=== PATIENT | male | born 1975 | race Caucasian/White ===

== ENCOUNTER 2017-04-26 14:12 | Emergency (ER) | payer MEDICAID ==
[~2017-04-26] VITALS: Ht 172.7 cm; Wt 115.0 kg
[2017-04-26 14:14] VITALS: Ht 172.7 cm; Wt 115.0 kg
--- NOTE | 2017-04-26 15:44 | ERD ---
ER Documentation Chief Complaint Date/Time DATE: 04/26/17 TIME: 15:43 Chief Complaint lac on left hand x 1 hour, cut at work HPI 41-year-old male presents emergency department today complaining of a left hand laceration he sustained earlier at work today while cutting with metal. Denies any previous trauma, fevers or chills. Has not taken any medication for the pain. States he is not up-to-date on his tetanus peer ROS All systems reviewed and are negative except as per history of present illness. Medications Home Meds Active Scripts Cephalexin* (Keflex*) 500 Mg Capsule, 500 MG PO QID for 7 Days, CAP Prov:AMBER RAPP PA-C 04/26/17 Acetaminophen* (Tylophen*) 500 Mg Capsule, 1 CAP PO Q6H Y for PAIN AND OR ELEVATED TEMP, #30 CAP Prov:AMBER RAPP PA-C 04/26/17 Naproxen* (Naprosyn*) 500 Mg Tablet, 500 MG PO BID Y for PAIN AND/OR INFLAMMATION, #30 TAB Prov:AMBER RAPP PA-C 04/26/17 Allergies Allergies: Coded Allergies: No Known Allergy (Unverified , 04/26/17) Physical Exam Vitals Vital Signs Date Time Temp Pulse Resp B/P Pulse Ox O2 Delivery O2 Flow Rate FiO2 04/26/17 14:14 97.8 71 20 126/82 98 Physical Exam Const: No acute distress Head: Atraumatic Eyes: Normal Conjunctiva ENT: Normal External Ears, Nose and Mouth. Neck: Full range of motion..~ No meningismus. Resp: Clear to auscultation bilaterally Cardio: Regular rate and rhythm, no murmurs Skin: No petechiae or rashes Back: No midline or flank tenderness Ext: Left hand with Neur: Awake and alert Psych: Normal Mood and Affect Results 24 hrs Current Medications Medications (Trade) Dose Ordered Sig/Eryn Route PRN Reason Start Time Stop Time Status Last Admin Dose Admin Acetaminophen/ Hydrocodone Bitart (Burden (5/325)) 1 tab ONCE ONCE PO 04/26/17 16:00 04/26/17 16:01 DC 04/26/17 15:52 Diphtheria/ Tetanus/Acell Pertussis (Adacel) 0.5 ml ONCE ONCE IM* 8/8/17 16:00 04/26/17 16:01 DC 04/26/17 15:53 Lidocaine (Xylocaine 2% (Mdv) 20 ml) 20 ml ONCE ONCE INJ 04/26/17 16:00 04/26/17 16:01 DC Procedures/MDM This a 41-year-old male who presents the emergency department for laceration that he sustained while at work today when cutting with metal. On physical exam patient had evidence of a 2 cm laceration on the dorsal aspect of his left thumb. [place] that the wound is best closed with sutures. I explained the risks and benefits of the procedure and the patient tolerated the procedure well. There were no complications. Patient had no tenderness along his joints or bone. There is no evidence of tendon involvement. There is no evidence of foreign body and I do not feel the patient requires imaging at this time. Low suspicion for acute fracture, dislocation. Laceration was repaired by both myself and FERNANDO Ghotra Laceration Repair by me: Anesthesia: 1% lidocaine locally 3 cc Location: Left thumb Tendon/Joint/Nerves: No injury Foreign body: None detected after copious irrigation and exploration Technique: 5 Simple Interrupted Sutures Complexity: No subcutaneous sutures/mucosal repair/ edge excision Post Closure Length: 2 cm Patient's bleeding was easily controlled in the department and there is no indication of anemia. No evidence of compartment syndrome, neurologic injury, vascular injury, open joint, tendon laceration, or foreign body. Patient is appropriate for outpatient follow up. 48 hour wound check. Scar minimization instructions given. Patient was given an updated tetanus, Burden here in the emergency department. He will be given a prescription for short course of Naprosyn, tylenol for home. I was also given a prescription for Keflex . Patient was placed in a splint given the location of the sutures. He was distal neurovascular intact pre-and post splint application instructed to return in 48 hours for a wound check and 7-10 days for suture removal At this time the patient is stable for discharge and outpatient management. Patient should follow up with their PCP in the next 1-2 days. They may return to the emergency department sooner for any persistent or worsening of symptoms. Patient understood and agreed with the plan. Departure Diagnosis: Primary Impression: Laceration Condition: Fair AMBER RAPP PA-C Apr 26, 2017 15:44
[2017-04-26] MEDS ORDERED: DIPHTH/TET/ACEL PERTUSS (ADULT) 0.5 ML VIAL IM* ONE (16:00)
[2017-04-26] MEDS ORDERED: HYDROCODONE/APAP (5/325) TAB PO ONE (16:00)
[2017-04-26] MEDS ORDERED: LIDOCAINE 2% (MDV) 20 ML INJ INJ ONE (16:00)
[2017-04-26] MEDS ORDERED: ACET500C5 PO (16:31)
[2017-04-26] MEDS ORDERED: CEPH-443 PO (16:31)
[2017-04-26] MEDS ORDERED: NAPR-260 PO (16:31)
[2017-04-26 17:07] VITALS: BP 132/78; PULSE 78; RESP 18; TEMP 98.1
== END 2017-04-26 17:05 | disposition home or self-care (01) ==
LOC: FTE 14:12
DX: S61.012A Laceration without foreign body of left thumb without damage to nail, initial encounter (principal); W26.8XXA Contact with other sharp object(s), not elsewhere classified, initial encounter; Y92.9 Unspecified place or not applicable; Z23 Encounter for immunization
CPT/HCPCS: 12001; 90471; 90715; Z7502; Z7610

== ENCOUNTER 2017-04-29 14:01 | Emergency (ER) | payer MEDICAID ==
[~2017-04-29] VITALS: Ht 160 cm; Wt 113.0 kg
[~2017-04-29 14:01] MED LIST: ACET500C5 PO; CEPH-443 PO; NAPR-260 PO
[2017-04-29 14:06] VITALS: Ht 160 cm; Wt 113.0 kg
--- NOTE | 2017-04-29 15:31 | ERD ---
ER Documentation Chief Complaint Date/Time DATE: 04/29/17 TIME: 15:21 Chief Complaint Patient here for a recheck HPI 41-year-old male present ED for wound check. He has sustained laceration to his dorsal left thumb 3 days ago, and received suturing repair at that time. Patient reports he is doing well, without increasing pain. Denies fever or chills. ROS All systems reviewed and are negative except as per history of present illness. Medications Home Meds Active Scripts Cephalexin* (Keflex*) 500 Mg Capsule, 500 MG PO QID for 7 Days, CAP Prov:AMBER RAPP PA-C 04/26/17 Acetaminophen* (Tylophen*) 500 Mg Capsule, 1 CAP PO Q6H Y for PAIN AND OR ELEVATED TEMP, #30 CAP Prov:AMBER RAPP PA-C 04/26/17 Naproxen* (Naprosyn*) 500 Mg Tablet, 500 MG PO BID Y for PAIN AND/OR INFLAMMATION, #30 TAB Prov:AMBER RAPP PA-C 04/26/17 Allergies Allergies: Coded Allergies: No Known Allergy (Unverified , 04/26/17) PMhx/Soc Medical and Surgical Hx: pt denies Medical Hx Hx Alcohol Use: Yes Hx Substance Use: No Hx Tobacco Use: No Physical Exam Vitals Vital Signs Date Time Temp Pulse Resp B/P Pulse Ox O2 Delivery O2 Flow Rate FiO2 04/29/17 14:06 98.0 81 20 132/72 98 Physical Exam General: Well-developed, well-nourished, conscious and coherent, in no distress Skin: Warm and dry without rash, good texture and turgor. Laceration site of the dorsal left thumb show good wound healing, no periwound erythema, swelling, or exudate. Head: Normocephalic without evidence of trauma Eyes: Sclera and conjunctivae normal; pupils equal, round, and reactive to light; extraocular movements are intact Chest: Normal AP diameter. Good expansion without retractions. Nontender. Lungs are clear to auscultate bilaterally with good tidal volume Heart: Regular rate and rhythm. No murmur, rub, or gallops heard Extremities: Full range of motion. Good strength bilaterally. No clubbing, cyanosis, or edema. Peripheral pulses are intact. Sensation intact Neuro: Alert and oriented 4, GCS 15. Cranial nerves grossly intact. Motor and sensory exams nonfocal. Moves all extremities. Speech clear. Gait normal Procedures/MDM Wound shows no evidence of infection, foreign body, neurologic injury, vascular injury, open joint or tendon laceration. Patient appropriate for outpatient follow up. Patient advised to return to ED in 1 week for suture removal. Disclaimer: Inadvertent spelling and grammatical errors are likely due to EHR/ dictation software use and do not reflect on the overall quality of patient care. Also, please note that the electronic time recorded on this note does not necessarily reflect the actual time of the patient encounter. Departure Diagnosis: Primary Impression: Follow-up examination for injury Condition: Stable Patient Instructions: Wound Check, Lac F/U (No Infection) Referrals: [facility] Usted se cruz hecho un examen mdico de control que le indica que no est en jluis condicin que requiera tratamiento urgente en el Departamento de Emergencia. Un estudio ms profundo y el tratamiento de hawthorne condicin pueden esperar sin ningn riesgo hasta que usted sea atendida/o en el consultorio de hawthorne mdico o jluis cl lucy. Es responsabilidad suya arreglar jluis liu para el seguimiento del ras. MANEJO DE CONDICIONES NO URGENTES EN EL FUTURO 1) Si usted tiene un mdico de atencin primaria: Usted debera llamar a hawthorne mdico de atencin primaria antes de venir al departamento de emergencia. Despus de las horas de consultorio, hawthorne doctor o hawthorne asociado/a est disponible por telfono. El mdico o enfermero de kyaw en el servicio telefnico puede asesorarle por taz medio para atender el problema, o ras contrario se puede programar jluis liu. 2) Si usted no tiene un mdico de atencin primaria: Llame al mdico o clnica de referencia que aparece abajo michael las horas de consultorio para hacer jluis liu para que le vean. CLINICAS: [facility] [phone] [facility] [phone] [facility] [phone] [place] [address] [phone] [place] [address] [phone] [place] [id number] [phone] Additional Instructions: SUTURE REMOVAL:CONSULTE A HAWTHORNE MDICO PARA SACAR HAWTHORNE PUNTOS.PARA LA GUERRERO 5-6 d as.EN OTRO LUGAR 7-10 scott. DIANA HEARN NP Apr 29, 2017 15:31
== END 2017-04-29 15:25 | disposition home or self-care (01) ==
LOC: FTE 14:01
DX: Z48.01 Encounter for change or removal of surgical wound dressing (principal)
CPT/HCPCS: 99281

== ENCOUNTER 2017-05-06 12:45 | Emergency (ER) | payer MEDICAID ==
[~2017-05-06] VITALS: Ht 170.2 cm; Wt 81.8 kg
[2017-05-06 12:46] VITALS: Ht 170.2 cm; Wt 81.8 kg
--- NOTE | 2017-05-06 13:25 | ERD ---
ER Documentation Chief Complaint Date/Time DATE: 05/06/17 TIME: 13:22 Chief Complaint LEFT HAND SUTURE REMOVAL HPI 41-year-old male presents for suture removal from his left thumb. Sutures were placed 10 days ago. He has no pain at the site. He has been keeping the dressing on since he had his 2 day wound check. No limitation range of motion. He is otherwise healthy and has finished his course of Keflex. ROS All systems reviewed and are negative except as per history of present illness. Medications Home Meds Active Scripts Cephalexin* (Keflex*) 500 Mg Capsule, 500 MG PO QID for 7 Days, CAP Prov:AMBER RAPP PA-C 04/26/17 Acetaminophen* (Tylophen*) 500 Mg Capsule, 1 CAP PO Q6H Y for PAIN AND OR ELEVATED TEMP, #30 CAP Prov:AMBER RAPP PA-C 04/26/17 Naproxen* (Naprosyn*) 500 Mg Tablet, 500 MG PO BID Y for PAIN AND/OR INFLAMMATION, #30 TAB Prov:AMBER RAPP PA-C 04/26/17 Allergies Allergies: Coded Allergies: No Known Allergy (Unverified , 05/06/17) PMhx/Soc Medical and Surgical Hx: pt denies Medical Hx, pt denies Surgical Hx Hx Alcohol Use: Yes Hx Substance Use: No Hx Tobacco Use: Yes Smoking Status: Current some day smoker Physical Exam Vitals Vital Signs Date Time Temp Pulse Resp B/P Pulse Ox O2 Delivery O2 Flow Rate FiO2 05/06/17 12:46 98.4 81 19 139/72 98 Physical Exam Const: [] No distress Ext: No cyanosis, or edema, left dorsal thumb laceration about PIP joint with no signs of infection, no erythema well-healing laceration. After suture removal there was mild separation of the upper layers of dried callused skin. No dehiscence, no bleeding Neur: Awake and alert Procedures/MDM Simple suture removal. I did Place Steri-Strips because of mild separation of upper layers of dried skin. Recommend primary care follow-up in 2-3 days as well as all of the hand clinic follow-up if needed. Return to ER precautions given as well. Departure Diagnosis: Primary Impression: Encounter for removal of sutures Condition: Stable Patient Instructions: Suture Removal, No Complication Referrals: [facility] YOU HAVE RECEIVED A MEDICAL SCREENING EXAM AND THE RESULTS INDICATE THAT YOU DO NOT HAVE A CONDITION THAT REQUIRES URGENT TREATMENT IN THE EMERGENCY DEPARTMENT. FURTHER EVALUATION AND TREATMENT OF YOUR CONDITION CAN WAIT UNTIL YOU ARE SEEN IN YOUR DOCTORS OFFICE WITHIN THE NEXT 1-2 DAYS. IT IS YOUR RESPONSIBILITY TO MAKE AN APPOINTMENT FOR FOLOW-UP CARE. IF YOU HAVE A PRIMARY DOCTOR --you should call your primary doctor and schedule an appointment IF YOU DO NOT HAVE A PRIMARY DOCTOR YOU CAN CALL OUR PHYSICIAN REFERRAL HOTLINE AT IF YOU CAN NOT AFFORD TO SEE A PHYSICIAN YOU CAN CHOSE FROM THE FOLLOWING [facility][1] [address] [facility]. [facility] [address] [facility] [address] [facility] [address] [facility]. [facility] [address] [facility]. [facility]. [address] Additional Instructions: Llame al doctor MAANA y ingrid jluis MACK PARA DENTRO DE 2-3 FARRAR.Dgale a la secretaria que nosotros le instruimos hacer esta mack.Avise o llame si padilla condicin se empeora antes de la mack. Regresa aqui si peor o no mejor. KERRI TOMLINSON DO May 06, 2017 13:25
== END 2017-05-06 13:25 | disposition home or self-care (01) ==
LOC: FTE 12:45
DX: Z48.02 Encounter for removal of sutures (principal); F17.210 Nicotine dependence, cigarettes, uncomplicated
CPT/HCPCS: 99281

== ENCOUNTER 2018-11-11 22:23 | Emergency (ER) | payer MEDICAID ==
[~2018-11-11] VITALS: Wt 114.9 kg
[~2018-11-11 22:23] MED LIST changes: -NAPR-260 PO; +NAPR-985 PO
[2018-11-12] MEDS ORDERED: KETOROLAC 15 MG INJ IV ONE (00:22)
--- NOTE | 2018-11-12 00:24 | ERD ---
ER Documentation Chief Complaint Chief Complaint CP RADIATING TO L ARM X'S 2 DAYS HPI This is a 43-year-old male with no significant past medical history aside from occasional tobacco use who is presenting with waxing and waning mild to moderate sore aching left-sided chest and shoulder pain radiating into his upper arm. It started yesterday and has been getting better since then. 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 He does not endorse any trauma or injury. He does not believe that the pain is worse with movement of his shoulder. The patient denies shortness of breath. He has not been diaphoretic. He has not had any nausea or vomiting. He has not had any lightheadedness or dizziness. The patient does not endorse a personal or family history of cardiovascular disease. The patient denies feeling sick recently. The patient denies fever or chills. The patient has had no headache or vision changes. The patient does not endorse neck or back pain. The patient denies abdominal pain. The patient denies changes to bowel movements or urination. The patient has had no focal deficits. The patient has had no weakness or numbness or tingling to the face or extremities. ROS All systems reviewed and are negative except as per history of present illness. Medications Home Meds Active Scripts Cephalexin* (Keflex*) 500 Mg Capsule, 500 MG PO QID for 7 Days, CAP Prov:AMBER RAPP PA-C 04/26/17 Acetaminophen* (Tylophen*) 500 Mg Capsule, 1 CAP PO Q6H PRN for PAIN AND OR ELEVATED TEMP, #30 CAP Prov:AMBER RAPP PA-C 04/26/17 Naproxen* (Naprosyn*) 500 Mg Tablet, 500 MG PO BID PRN for PAIN AND/OR INFLAMMATION, #30 TAB Prov:AMBER RAPP PA-C 04/26/17 Allergies Allergies: Coded Allergies: No Known Allergy (Unverified , 05/06/17) PMhx/Soc Medical and Surgical Hx: pt denies Medical Hx, pt denies Surgical Hx History of Surgery: No Anesthesia Reaction: No Hx Neurological Disorder: No Hx Respiratory Disorders: No Hx Cardiac Disorders: No Hx Psychiatric Problems: No Hx Miscellaneous Medical Probl: No Hx Alcohol Use: Yes (Social) Hx Substance Use: No Hx Tobacco Use: Yes (4 sticks/day) Smoking Status: Current every day smoker FmHx Family History: No diabetes Physical Exam Vitals Vital Signs Date Temp Pulse Resp B/P (MAP) Pulse Ox O2 O2 Flow FiO2 Time Delivery Rate 11/11/18 97.8 71 18 148/82 98 22:27 (104) Physical Exam Const: No apparent distress, well-developed, well-nourished Head: Normocephalic, Atraumatic Eyes: Normal Conjunctiva. Extraocular movements intact. Pupils equal, round and reactive to light ENT: Normal External Ears, Nose and Mouth. Neck: Full range of motion. No meningismus. Resp: Clear to auscultation bilaterally, No wheezes, rales or rhonchi Cardio: Regular rate and rhythm. No murmurs, rubs or gallops Abd: Soft, non tender, non distended. Normal bowel sounds Skin: No petechiae or rashes Back: No midline tenderness. No CVA tenderness Ext: No cyanosis, or edema Neur: Awake and alert, oriented 4. Cranial nerves intact. No facial droop. Normal strength, sensation and coordination. Psych: Normal Mood and Affect Result Diagram: 11/11/180 11/11/18 231 Results 24 hrs Laboratory Tests Test 11/11/18 23:10 11/12/18 01:00 White Blood Count 6.9 10^3/ul Red Blood Count 4.72 10^6/ul Hemoglobin 13.8 g/dl Hematocrit 42.2 % Mean Corpuscular Volume 89.4 fl Mean Corpuscular Hemoglobin 29.2 pg Mean Corpuscular Hemoglobin Concent 32.7 g/dl Red Cell Distribution Width 13.8 % Platelet Count 200 10^3/UL Mean Platelet Volume 11.6 fl Immature Granulocytes % 0.300 % Neutrophils % 57.0 % Lymphocytes % 31.4 % Monocytes % 8.7 % Eosinophils % 1.9 % Basophils % 0.7 % Nucleated Red Blood Cells % 0.0 /100WBC Immature Granulocytes # 0.020 10^3/ul Neutrophils # 3.9 10^3/ul Lymphocytes # 2.2 10^3/ul Monocytes # 0.6 10^3/ul Eosinophils # 0.1 10^3/ul Basophils # 0.1 10^3/ul Nucleated Red Blood Cells # 0.0 10^3/ul D-Dimer < 220.00 ng/ml D-Dimer Comment Sodium Level 141 mmol/L Potassium Level 3.4 mmol/L Chloride Level 104 mmol/L Carbon Dioxide Level 30 mmol/L Anion Gap 7 Blood Urea Nitrogen 15 mg/dl Creatinine 0.77 mg/dl Est Glomerular Filtrat Rate mL/min > 60 mL/min Glucose Level 99 mg/dl Calcium Level 9.7 mg/dl Troponin I < 0.012 ng/ml < 0.012 ng/ml Current Medications Medications Dose Sig/Eryn Start Time Status Last (Trade) Ordered Route PRN Stop Time Admin Dose Reason Admin Ketorolac 15 mg ONCE ONCE 11/12/18 DC 11/12/18 Tromethamine IV 00:22 00:56 (Toradol) 11/12/18 00:23 Procedures/MDM MDM The patient's presentation warrants further investigation. Previous medical records, if available, were reviewed. LABS The patient's laboratory testing was obtained and reviewed. No emergent treatment was required unless described below. CBC: No E/o of systemic infection or severe anemia or thrombocytopenia BMP: No E/o severe acidosis or alkalosis or renal failure or diabetic ketoacidosis Troponin: No E/o acute ischemia x 2 D-dimer: Within normal limits EKG EKG read by me: Rate/Rhythm: Regular rate and rhythm at a rate of 73 bpm Intervals: Normal. Incomplete right bundle branch block. [place]: Rightward axis Impression: The patient does have a prominent S wave in lead I with a Q wave in lead II and a T wave inversion. No evidence of acute ischemia or arrhythmia. IMAGING Imaging and Radiology interpretation reviewed. CXR FINDINGS: The lungs are clear. No pleural effusion. No pneumothorax. The cardiomediastinal silhouette is unremarkable. IMPRESSION: No acute air space infiltrates. Electronically viewed and signed by Tony Mccracken MD on 11/11/2018 23:10 TREATMENT/DISPOSITION The patient's chest xray does not reveal pneumonia or pneumothorax or pleural effusions or pulmonary edema. She does not have a widened mediastinum and does not have signs or symptoms concerning for thoracic aortic aneurysm or dissection. The patient does not have pneumomediastinum or signs concerning for esophageal tear or rupture. The patient has no clinical or radiographic signs of pericardial effusion or tamponade. The patient does not have pneumoperitoneum and I have decreased suspicion of viscus perforation as possible referred pain. The patient does not have a history of heart failure and I have low suspicion for this. The patient does not have a diagnosis of COPD and is not wheezing today. The patient is not tachypneic or hypoxic. The patient is breathing comfortably and without pleuritic pain. The patient is not on hormonal therapy. The patient has no history of clotting or bleeding disorders. The patient has no calf tenderness. The patient has had no hemoptysis. That said, the patient did have a prominent S wave in lead I with a Q waves and T wave inversion in lead III. A d-dimer was completed to evaluate for possible pulmonary embolism. The d-dimer was within normal limits. I have decreased suspicion for PE. The patient's troponin and EKG are reassuring. I have low suspicion for acute coronary syndrome. The patient's HEART score is equal to or less than 3. This stratifies the patient into the low risk (<1%) group for an major adverse cardiac event within the next 30 days. Shared decision making was enacted. The risks and benefits of admission and discharge were discussed with the patient and it was ultimately decided that the patient would be discharged with close outpatient follow up and evaluation for functional testing within 72 hours. The patient was treated with Toradol in the emergency department. Upon reevaluation of the patient, symptoms have improved. No emergent diagnoses were identified. At this time, I feel that the patient stable for discharge. The patient was instructed to follow-up with a primary care physician in 1-3 days. The patient will be given strict precautions with which to return to the emergency department. Prescriptions: Ibuprofen The patient's blood pressure was elevated at greater than 120/80 while in the emergency department. The patient was otherwise stable with no evidence of hypertensive urgency or emergency. The patient does not require admission for blood pressure control. I have discussed with the patient the risks of hypertension. I have instructed the patient to return to the ER for any new or worsening symptoms including chest pain, shortness of breath, headache, blurred vision, confusion, nausea, vomiting or LOC. I have advised the patient to follow up with the primary care physician for outpatient monitoring and treatment for hypertension in 1-3 days. Disclaimer: Inadvertent spelling and grammatical errors are likely due to EHR/dictation software use and do not reflect on the overall quality of patient care. Note that the electronic time recorded on this note does not necessarily reflect the actual time of the patient encounter. Departure Diagnosis: Primary Impression: Nonspecific chest pain Additional Impressions: Normocytic anemia Hypokalemia Condition: Stable JASVIR MARIE MD Nov 12, 2018 00:24
[2018-11-12 02:00] VITALS: BP 117/77; PULSE 68; RESP 19
[2018-11-12] MEDS ORDERED: IBUP-1542 PO (02:10)
== END 2018-11-12 02:45 | disposition home or self-care (01) ==
LOC: E/R 22:23
DX: R07.9 Chest pain, unspecified (principal); F17.210 Nicotine dependence, cigarettes, uncomplicated; D64.9 Anemia, unspecified; E87.6 Hypokalemia
CPT/HCPCS: 36415; 71045; 80048; 84484; 85025; 85378; 93005; 96374; J1885; Z7502; Z7610